=== PATIENT | female | born 1990 | race Caucasian/White ===

== ENCOUNTER 2024-04-04 18:09 | Emergency (ER) | payer SELFPAY ==
[~2024-04-04] VITALS: Ht 165.1 cm; Wt 62.6 kg
[~2024-04-04 18:09] MED LIST: CLIN150 PO; CYCL10 PO; Cleocin HCl300 MG PO; HYDACE5 PO; IBUP800 PO; Lasix20 MG PO; NAPR500 PO; PHENA200 PO; Peridex480 ML SS; RXCLIN PO; RXCYCL10 PO; RXHYDACE PO; RXOXYACE PO; SULTRIDS PO
[2024-04-04 19:01] LABS: BASOPHILS ABSOLUTE AUTO 0.06 K/mm3 (0.00-0.23); BASOPHILS PERCENT AUTO 1 % (0-2); EOSINOPHILS ABSOLUTE AUTO 0.16 K/mm3 (0.00-0.68); EOSINOPHILS PERCENT AUTO 3 % (0-6); Hematocrit 39.4 % (33.0-51.0); Hemoglobin 13.2 g/dL (11.5-16.0); IMMATURE GRAN ABSOLUTE AUTO 0.02 K/mm3 (0.00-0.10); IMMATURE GRAN PERCENT AUTO 0 % (0-1); LYMPHOCYTES ABSOLUTE AUTO 1.66 K/mm3 (0.84-5.20); LYMPHOCYTES PERCENT AUTO 28 % (21-46); MONOCYTES ABSOLUTE AUTO 0.68 K/mm3 (0.16-1.47); MONOCYTES PERCENT AUTO 11 % (4-13); Mean Corpuscular HGB Conc 33.5 g/dL (31.5-36.5); Mean Corpuscular Volume 96 fL (80-100); Mean Platelet Volume 9.7 fL (9.1-12.4); NEUTROPHILS ABSOLUTE AUTO 3.37 K/mm3 (1.96-9.15); NEUTROPHILS PERCENT AUTO 57 % (41-73); Platelet Count 304 K/mm3 (150-400); RDW Coefficient Variation 13.2 % (11.7-14.2); RDW Standard Deviation 47.2 fL (35.1-46.3); Red Blood Cell Count 4.12 M/mm3 (3.80-5.20); White Blood Cell Count 5.95 K/mm3 (4.00-11.30)
[2024-04-04 19:30] LABS: Albumin, Blood 3.9 g/dL (3.4-5.0); Albumin/Globulin Ratio 1.3 (0.8-1.8); Bilirubin, Total 0.3 mg/dL (0.1-1.0); Bun/Creatinine Ratio 15.8 (12.0-20.0); Calcium, Blood 9.2 mg/dL (8.5-10.1); Creatinine, Blood 0.76 mg/dL (0.40-1.00); Globulin, Blood 3.1 g/dL (2.2-4.0); Potassium, Blood 3.9 mmol/L (3.5-5.5)
[2024-04-04 20:18] VITALS: BP 126/67
[2024-04-04 21:20] LABS: Free Thyroxine 1.01 ng/dL (0.70-1.60)
[2024-04-04 21:30] LABS: Thyroid Stimulating Hormone 2.85 uIU/mL (0.360-4.800)
== END 2024-04-04 22:26 | disposition home or self-care (01) ==
LOC: ER 18:09
PROVIDERS: Physician Assistant
DX: R60.0 Localized edema (principal); F17.200 Nicotine dependence, unspecified, uncomplicated; Z79.899 Other long term (current) drug therapy; Z91.040 Latex allergy status; Z88.8 Allergy status to other drugs, medicaments and biological substances
CPT/HCPCS: 80053; 83880; 84439; 84443; 84484; 85025; 93005; 93010; 93970; 99284-25